=== PATIENT | male | born 1935 | race Caucasian/White ===

== ENCOUNTER → 2020-03-30 | Outpatient (CLI) | payer MEDICARE, OTHER ==
[~2020-03-30] MED LIST: GASTROGRAFIN SOLUTION 30ML (Q9963) As Ordered ONE; ISOVUE-370 76% 100ML VIAL As Ordered ONE
--- NOTE | 2020-05-10 09:46 | REP ---
HISTORY: Prostate carcinoma. COMPARISON: Made with radiation oncology pelvic CT imaging from 10/16/2005. CT CONTRAST DOSE: 100 mL of intravenous Isovue-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 There are surgical clips bilaterally in the pelvis. Axial CT images of the lung bases demonstrate a nodular opacity at the top of the imaging field of view in the right lower lobe incompletely evaluated. This measures at least 10 mm in diameter. In addition, there is a ground-glass nodular opacity partially solid 12 mm in diameter in the left lower lobe. Chest CT study recommended for further evaluation. There is no evidence of pleural effusion or upper abdominal ascites. The liver and the spleen are normal in size and homogeneous in texture. There is a small sliding-type hiatal hernia. Vascular calcification is seen fairly extensively. There are bilateral renal cortical cysts. No hydronephrosis is seen. No renal mass lesion is observed. There is [id number] periaortic retroperitoneal lymphadenopathy. The largest node is a left periaortic lymph node measuring 2.0 x 1.6 cm in greatest transverse dimension. There are posterior aortocaval lymph nodes seen measuring 1.2 and 1.2 cm in greatest diameter respectively. At the aortic bifurcation, there is a left common iliac lymph node measuring 1.6 x 2.2 cm. There is a left external iliac enlarged lymph node measuring 1.6 cm in greatest diameter. There are normal appearing bilateral inguinal lymph nodes. There are dystrophic calcifications in the prostate. Seminal vesicles are symmetric. Normal appendix is seen in the right lower quadrant. There is left colonic diverticulosis without CT evidence of diverticulitis. Bone window settings show no sclerotic or lytic bony destructive lesion. IMPRESSION: * There are at least two somewhat suspicious pulmonary nodules one in each lower lobe. Recommend a chest CT. * There is [id number] retroperitoneal and left pelvic lymphadenopathy consistent with metastatic disease. * Left colonic diverticulosis. Surgical clips in the pelvis bilaterally. * Bilateral renal cortical cysts. MTDD
--- NOTE | 2020-05-10 09:47 | REP ---
WHOLE BODY BONE SCAN: HISTORY: Prostate cancer. TECHNIQUE: Following the intravenous administration of 19.1 mCi technetium-99m MDP, the patient's whole body is scanned in the anterior and posterior projections with additional oblique and lateral views obtained. FINDINGS: There are scattered areas of arthritic uptake, specifically in the bilateral shoulders, wrists, knees and also in the left foot and left sternoclavicular joint. There is some arthritic uptake in the cervical spine. There is no compelling scintigraphic evidence of osseous metastases. Renal and bladder activity are seen. IMPRESSION: Scattered areas of arthritis uptake with no compelling scintigraphic evidence of osseous metastases. MTDD
== END ==
LOC: M RAD 08:20
PROVIDERS: ATTEND Specialist
DX: R91.8 Other nonspecific abnormal finding of lung field (principal); N28.1 Cyst of kidney, acquired; Z85.46 Personal history of malignant neoplasm of prostate
CPT/HCPCS: 74177; 78306; Q9963; Q9967